=== PATIENT | male | born 1965 | race Hispanic/Latino ===

== ENCOUNTER 2021-01-24 11:11 | Emergency (ER) | payer SELFPAY ==
[~2021-01-24] VITALS: Ht 175.3 cm; Wt 79.4 kg
== END 2021-01-24 12:02 | disposition home or self-care (01) ==
LOC: ER 11:27
DX: E11.621 Type 2 diabetes mellitus with foot ulcer (principal); L97.529 Non-pressure chronic ulcer of other part of left foot with unspecified severity
CPT/HCPCS: 99282

== ENCOUNTER 2023-09-13 07:55 | Outpatient (RCR) | payer MEDICARE ==
[2023-09-13] MEDS ORDERED: TRYPSIN/BALSAM PERU/CASTOR OIL ONE (12:42)
== END 2023-09-27 ==
LOC: WCC 07:55
PROVIDERS: ATTEND Podiatrist Foot & Ankle Surgery
DX: E11.621 Type 2 diabetes mellitus with foot ulcer (principal); L97.418 Non-pressure chronic ulcer of right heel and midfoot with other specified severity
CPT/HCPCS: 36415; 82948

== ENCOUNTER → 2023-10-28 | Outpatient (RCR) | payer MEDICARE ==
[~2023-10-28] MED LIST: TRYPSIN/BALSAM PERU/CASTOR OIL ONE
== END ==
LOC: WCC 10-07 08:00
PROVIDERS: ATTEND Podiatrist Foot & Ankle Surgery
DX: E11.621 Type 2 diabetes mellitus with foot ulcer (principal); L97.418 Non-pressure chronic ulcer of right heel and midfoot with other specified severity

== ENCOUNTER 2023-11-11 16:33 | Outpatient (RCR) | payer MEDICARE | END 2023-11-25 14:31 | disposition home or self-care (01) | LOC: WCC 16:33 | PROVIDERS: ATTEND Podiatrist Foot & Ankle Surgery | DX: E11.621 Type 2 diabetes mellitus with foot ulcer (principal); E11.40 Type 2 diabetes mellitus with diabetic neuropathy, unspecified; L97.418 Non-pressure chronic ulcer of right heel and midfoot with other specified severity; L84 Corns and callosities ==

== ENCOUNTER 2023-12-16 13:49 | Outpatient (RCR) | payer MEDICARE ==
[2023-12-16] MEDS ORDERED: TRYPSIN/BALSAM PERU/CASTOR OIL ONE (13:52)
== END 2023-12-28 ==
LOC: WCC 13:49
PROVIDERS: ATTEND Podiatrist Foot & Ankle Surgery
DX: E11.621 Type 2 diabetes mellitus with foot ulcer (principal); L97.418 Non-pressure chronic ulcer of right heel and midfoot with other specified severity

== ENCOUNTER 2024-01-18 16:09 | Outpatient (RCR) | payer MEDICARE | END 2024-01-28 | LOC: WCC 16:09 | PROVIDERS: ATTEND Podiatrist Foot & Ankle Surgery | DX: E11.621 Type 2 diabetes mellitus with foot ulcer (principal); L97.418 Non-pressure chronic ulcer of right heel and midfoot with other specified severity ==

== ENCOUNTER 2024-02-24 13:46 | Outpatient (RCR) | payer MEDICARE ==
[2024-02-24 19:16] LABS: ALBUMIN/GLOBULIN RATIO 0.7 (0.8-2.0); ANION GAP 14.6 mmol/L (8-16); BILIRUBIN,TOTAL 0.9 mg/dL (0.2-1.2); CALCIUM 8.5 mg/dL (8.4-10.2); CREATININE, SERUM 5.37 mg/dL (0.72-1.25); POTASSIUM 3.6 mmol/L (3.5-5.1); TOTAL PROTEIN 7.3 g/dL (6.5-8.1)
[2024-02-25 07:18] LABS: C-REACTIVE PROTEIN 12 mg/L (0-10)
[2024-02-25 11:17] LABS: PREALBUMIN 18 mg/dL (10-36)
== END 2024-02-27 ==
LOC: WCC 13:46
PROVIDERS: ATTEND Podiatrist Foot & Ankle Surgery
DX: E11.621 Type 2 diabetes mellitus with foot ulcer (principal); L97.418 Non-pressure chronic ulcer of right heel and midfoot with other specified severity
CPT/HCPCS: 36415; 80053; 83036; 84134; 86140

== ENCOUNTER 2024-03-09 13:00 | Outpatient (RCR) | payer MEDICARE | END 2024-03-29 | LOC: WCC 13:00 | PROVIDERS: ATTEND Podiatrist Foot & Ankle Surgery | DX: E11.621 Type 2 diabetes mellitus with foot ulcer (principal); L97.418 Non-pressure chronic ulcer of right heel and midfoot with other specified severity | CPT/HCPCS: 36415; 82948 ==